=== PATIENT | female | born 1975 | race African-American/Black ===

== ENCOUNTER 2017-05-12 22:13 | Emergency (ER) | payer OTHER ==
[~2017-05-12] VITALS: Ht 160 cm; Wt 125.1 kg
[2017-05-13] MEDS ORDERED: CITRATE OF MAG296 ML PO (01:48)
[2017-05-13] MEDS ORDERED: MIRALAX119 GM PO (01:48)
[2017-05-13] MEDS ORDERED: SENOKOT S,PE1 TABLET PO (01:48)
[2017-05-13 02:29] VITALS: BP 110/66
== END 2017-05-13 02:30 | disposition home or self-care (01) ==
LOC: EME 22:13
DX: K59.09 Other constipation (principal); Z98.890 Other specified postprocedural states; Z88.6 Allergy status to analgesic agent
CPT/HCPCS: 99281; 99283